=== PATIENT | male | born 1990 | race African-American/Black ===

== ENCOUNTER 2018-08-03 14:14 | Emergency (ER) | payer SELFPAY ==
--- NOTE | 2018-08-03 14:30 | PDOC ---
Rapid Medical Evaluation Chief Complaint: Chest Pain Time Seen by Provider: 08/03/18 14:28 Medical Evaluation: Allergies Allergy/AdvReac Type Severity Reaction Status Date / Time No Known Allergies Allergy Verified 08/03/18 14:28 08/03/18 14:28 c/o chest pain x ~ 1.5 months not getting better. + marijuana daily smoker. denies dizziness, fever/ chills PE: patient alert ox3. breath sounds regular rate. non reproducible chest pain A: chest pain P: chest xray, ekg patient to the ER for further management Discharge Disposition - Diagnosis Chest pain at rest - Referrals - Patient Instructions - Post Discharge Activity
[2018-08-03 14:33] VITALS: BP 108/66; PULSE 70; TEMP 97.7; BMI 22.4
[2018-08-03] MEDS ORDERED: ALBUTEROL SO4 2.5/IPRATROPIUM 0.5 INH SOL 3 ML VIAL.NEB. NEB ONE ×2 (15:17→15:38)
--- NOTE | 2018-08-03 15:20 | PDOC ---
History of Present Illness - General Chief Complaint: Chest Pain Stated Complaint: CHEST PAIN Time Seen by Provider: 08/03/18 14:28 History Source: Patient Exam Limitations: No Limitations - History of Present Illness Initial Comments: 08/03/18 15:19 27 yr male with c/o chest pain on and off for 2 weeks worse with smoking marijuana. No SOB no fever no chills. Pt admits to smoking marijuana daily . Pt has no pmhx no allergies. Pt states pain is left sided radiated to back and to the lower abdomen, worse after smoking marijuana. no recent travel or surgery. 08/03/18 15:35 Past History - Past Medical History Allergies/Adverse Reactions: Allergies Allergy/AdvReac Type Severity Reaction Status Date / Time No Known Allergies Allergy Verified 08/03/18 14:28 Home Medications: Ambulatory Orders NK [No Known Home Medication] 08/03/18 COPD: No Other medical history: DENIES. - Suicide/Smoking/Psychosocial Hx Smoking History: Never smoked Substance Use Type: Marijuana Review of Systems - Review of Systems Able to Perform ROS?: Yes Is the patient limited Citizen [place] proficient: No Constitutional: No: Symptoms Reported HEENTM: No: Symptoms Reported Respiratory: No: Symptoms reported Cardiac (ROS): Yes: Symptoms Reported *Physical Exam - Vital Signs Last Vital Signs Temp Pulse Resp BP Pulse Ox 97.7 F 70 19 108/66 100 08/03/18 14:28 08/03/18 14:28 08/03/18 14:28 08/03/18 14:28 08/03/18 14:28 - Physical Exam General Appearance: Yes: Nourished, Appropriately Dressed HEENT: positive: EOMI, SELVIN, TMs Normal, Pharynx Normal Neck: positive: Supple. negative: Tender Respiratory/Chest: positive: Lungs Clear, Normal Breath Sounds. negative: Chest Tender Cardiovascular: positive: Regular Rhythm, Regular Rate Gastrointestinal/Abdominal: positive: Normal Bowel Sounds, Soft Musculoskeletal: positive: Normal Inspection Extremity: positive: Normal Capillary Refill, Normal Inspection, Normal Range of Motion Integumentary: positive: Normal Color, Dry, Warm Neurologic: positive: acidity tester II-XII NML intact, Fully Oriented, Alert, Normal Mood/ Affect, Normal Response, Motor Strength 5/5 Heart Score/ECG Review - History History: Slightly suspicious - Electrocardiogram EKG: Non specific repolarization disturbance - Age Age: </= 45 - Risk Factors Risk Factors Heart Score: No Hx Hypercholesterolemia, No Hx Hypertension, No Hx Diabetes, Yes Smoking History, No Positive family hx of cardiac disease Based on the list above the patient has:: No risk factors known - ECG Intrepretation Rhythm: Regular Rhythm - [place]: Left [place] Deviation ED Treatment Course - LABORATORY CBC & Chemistry Diagram: 08/03/18 15:45 08/03/18 15:50 - ADDITIONAL ORDERS Additional order review: Laboratory Results 08/03/18 15:50 Sodium 138 Potassium 4.1 Chloride 104 Carbon Dioxide 28 Anion Gap 6 L BUN 14 Creatinine 1.1 Creat Clearance w eGFR > 60 Random Glucose 90 Calcium 8.9 Total Bilirubin 1.1 H AST 29 ALT 26 Alkaline Phosphatase 66 Creatine Kinase 341 H Creatine Kinase Index 0.3 CK-MB (CK-2) 1.3 Troponin I < 0.02 Total Protein 8.2 Albumin 4.0 08/03/18 15:45 RBC 5.57 MCV 84.4 MCHC 33.0 RDW 12.7 MPV 8.9 - Medications Given in the ED: ED Medications Discontinued Medications Generic Name Dose Route Start Last Admin Trade Name Freq PRN Reason Stop Dose Admin Albuterol/Ipratropium 1 amp 08/03/18 15:17 08/03/18 15:50 Duoneb - NEB 08/03/18 15:18 1 amp ONCE ONE Administration Ibuprofen 600 mg 08/03/18 15:35 08/03/18 15:51 Motrin - PO 08/03/18 15:36 600 mg ONCE ONE Administration Medical Decision Making - Medical Decision Making 08/03/18 15:38 cc: left sided chest pain constant stabbing sensation radiates to the side and mid back , lower abd pain no fever no chills, no coughing pt states pain worse with deep breathe and with smoking marijuana neg nausea or vomiting pt appears comfortable no distress vitals stable EKG with NSR left axis deviation, abnormal EKG signed by Dr. Acuna will get labs, CXR, duoneb ibuprofen 08/03/18 15:41 *DC/Admit/Observation/Transfer Diagnosis at time of Disposition: Chest pain at rest - Referrals Referrals: Barry Fraser MD [Staff Physician] - [facility] [Provider Group] José Luis Molina MD [Staff Physician] - - Patient Instructions Printed Discharge Instructions: DI for Atypical Chest Pain Additional Instructions: follow up with one of the doctors listed below . is primary care is cardiology , call Monday to make appointment for next week, tell them you were in the ER avoid smoking any type of inhalant can cause lung pain take ibuprofen as directed for pain (over the counter motrin, advil or ibuprofen ) drink at least 2 liters of water Return if any worsening symptoms - Post Discharge Activity
[2018-08-03] MEDS ORDERED: IBUPROFEN 600 MG TABLET (FP) PO ONE ×2 (15:35→15:38)
[2018-08-03 15:54] LABS: HEMOGLOBIN 15.5 GM/dL (11.7-16.9); MCH 27.9 pg (25.7-33.7); MEAN CELL VOLUME 84.4 fl (80-96); MEAN PLT VOLUME 8.9 fl (7.5-11.1); PLATELET COUNT 216 K/MM3 (134-434); RBC 5.57 M/mm3 (4.00-5.60); RDW 12.7 % (11.9-15.9); WHITE BLOOD COUNT 4.9 K/mm3 (4.0-10.0)
[2018-08-03 16:33] LABS: ALK PHOS 66 U/L (45-117); ANION GAP 6 MMOL/L (8-16); BILIRUBIN,TOTAL 1.1 mg/dL (0.2-1); BLOOD UREA NITROGEN 14 mg/dL (7-18); CALCIUM 8.9 mg/dL (8.5-10.1); CHLORIDE 104 mmol/L (98-107); CO2 28 mmol/L (21-32); CREATININE 1.1 mg/dL (0.55-1.3); GLUCOSE,RANDOM 90 mg/dL (74-106); POTASSIUM 4.1 mmol/L (3.5-5.1); SGOT/AST 29 U/L (15-37); SGPT/ALT 26 U/L (13-61); SODIUM 138 mmol/L (136-145); TOT PROT 8.2 g/dl (6.4-8.2)
--- NOTE | 2018-08-06 23:47 | EKG ---
Test Reason : Blood Pressure : / mmHG Vent. Rate : 061 BPM Atrial Rate : 061 BPM P-R Int : 150 ms QRS Dur : 078 ms QT Int : 356 ms P-R-T Axes : 071 -46 026 degrees QTc Int : 358 ms NORMAL SINUS RHYTHM LEFT AXIS DEVIATION ABNORMAL ECG NO PREVIOUS ECGS AVAILABLE Confirmed by JOSHUA HOBSON MD ([id number]) on 08/06/2018 11:46:56 PM Referred By: Confirmed By:JOSHUA HOBSON MD
== END 2018-08-03 17:34 | disposition home or self-care (01) ==
LOC: JERFT 14:14
PROC: 3E0F7GC Introduction of Other Therapeutic Substance into Respiratory Tract, Via Natural or Artificial Opening (ICD-10-PCS; principal; 2018-08-03)
DX: R07.9 Chest pain, unspecified (principal); Z87.891 Personal history of nicotine dependence
CPT/HCPCS: 36415; 71046-TC-FY; 80053; 82550; 82553; 84484; 85027; 93005; 93010; 99281-25

== ENCOUNTER 2018-11-17 19:33 | Emergency (ER) | payer SELFPAY ==
[2018-11-17 19:38] VITALS: BMI 24.1
--- NOTE | 2018-11-17 20:59 | PDOC ---
History of Present Illness - General Chief Complaint: Chest Pain Stated Complaint: CHEST PAIN Time Seen by Provider: 11/17/18 20:47 - History of Present Illness Initial Comments: 11/17/18 21:00 27 yo M with no significant pmh who p/w chest pain. Patient reports unremitting left sided chest pressure, radiating to left axilla x 24 hours. states that he has experienced 1-2 weeks of non pleuritic, non exertional chest pressure with no identifiable triggers or alleviations, resolving spontaneously. Reports h/o similar presentation in past. Denies recent chest trauma. Does not f/w cardiology. Patient denies JAVIER, vision change, palpitations, cough, wheezing, orthopena, PND , leg swelling/pain, N/V, F,C, SOB, urinary complaints, hematuria, BPR, abdominal pain, diarrhea, constipation, lightheadedness, weakness, sensory changes. PMHx: as noted above. Denies h/o ACS/WV, stent, holter monitor testing, stress testing, abnml EKG, PE/DVT. ROS: as noted SHx: Denies tobacco use, IVDA, Etoh. Reports daily recreational marijuanna use. No recent travels, or sick contacts. Allergies: NKDA Past History - Past Medical History Allergies/Adverse Reactions: Allergies Allergy/AdvReac Type Severity Reaction Status Date / Time No Known Allergies Allergy Verified 11/17/18 19:38 Home Medications: Ambulatory Orders NK [No Known Home Medication] 08/03/18 COPD: No Diabetes: No HTN: No Hypercholesterolemia: No - Immunization History Immunization Up to Date: No - Suicide/Smoking/Psychosocial Hx Smoking History: Never smoked Have you smoked in the past 12 months: No Information on smoking cessation initiated: No Hx Alcohol Use: No Drug/Substance Use Hx: No Substance Use Type: Marijuana Review of Systems - Review of Systems Comments:: 11/17/18 21:05 GENERAL/CONSTITUTIONAL: No fever or chills. No weakness. HEAD, EYES, EARS, NOSE AND THROAT: No change in vision. No ear pain or discharge. No sore throat. CARDIOVASCULAR:+ chest pain. No shortness of breath RESPIRATORY: No cough, wheezing, or hemoptysis. GASTROINTESTINAL: No nausea, vomiting, diarrhea or constipation. GENITOURINARY: No dysuria, frequency, or change in urination. MUSCULOSKELETAL: No joint or muscle swelling or pain. No neck or back pain. SKIN: No rash NEUROLOGIC: No headache, vertigo, loss of consciousness, or change in strength/ sensation. ENDOCRINE: No increased thirst. No abnormal weight change HEMATOLOGIC/LYMPHATIC: No anemia, easy bleeding, or history of blood clots. ALLERGIC/IMMUNOLOGIC: No hives or skin allergy. *Physical Exam - Vital Signs Last Vital Signs Temp Pulse Resp BP Pulse Ox 98.0 F 64 16 138/69 100 11/17/18 19:36 11/17/18 19:36 11/17/18 19:36 11/17/18 19:36 11/17/18 19:36 - Physical Exam Comments: 11/17/18 21:05 GENERAL: Awake, alert, and fully oriented, in no acute distress HEAD: No signs of trauma, normocephalic, atraumatic EYES: PERRLA, EOMI, sclera anicteric, conjunctiva clear ENT: Auricles normal inspection, hearing grossly normal, nares patent, oropharynx clear without exudates. Moist mucosa NECK: Normal ROM, supple, no lymphadenopathy, JVD, or masses LUNGS: No distress, speaks full sentences, clear to auscultation bilaterally HEART: Regular rate and rhythm, normal S1 and S2, no murmurs, rubs or gallops, peripheral pulses normal and equal bilaterally. ABDOMEN: Soft, nontender, normoactive bowel sounds. No guarding, no rebound. No masses EXTREMITIES : Normal inspection, Normal range of motion, no edema. No clubbing or cyanosis. NEUROLOGICAL: Cranial nerves II through XII grossly intact. Normal speech, normal gait, no focal sensorimotor deficits SKIN: Warm, Dry, normal turgor, no rashes or lesions noted Moderate Sedation - Procedure Monitoring Vital Signs: Procedure Monitoring Vital Signs Temperature 98.0 F 11/17/18 19:36 Pulse Rate 64 11/17/18 19:36 Respiratory Rate 16 11/17/18 19:36 Blood Pressure 138/69 11/17/18 19:36 O2 Sat by Pulse Oximetry (%) 100 11/17/18 19:36 ED Treatment Course - LABORATORY CBC & Chemistry Diagram: 11/17/18 21:35 11/17/18 21:35 Medical Decision Making - Medical Decision Making 11/17/18 21:04 27 yo M with no significant pmh who p/w unremitting left sided chest pressure, radiating to left axilla x 24 hours. Vitals wnl, AF, A&Ox3. Physical exam unremarkable. ACS/WV r/o. R/o PNA. PERC NEG PE. Will consider costochondritis, gastritis. No evdiece of pleural or pericardial effusion, asthma, CHF. ED Course: ASA 162 11/17/18 21:34 EKG: Sinus bradycardia HR 59, with LAD, absent ADDISON, STD. Absent pathologic Q waves, nml R wave progression. CXR: Unremarkable 11/17/18 22:30 CBC,CMP: Unremarkable Trop: Neg Patient stable for d/c with return precautions Advised to f/u with cardiology *DC/Admit/Observation/Transfer Diagnosis at time of Disposition: Chest pain at rest - Discharge Dispostion Disposition: HOME Condition at time of disposition: Stable Decision to Admit order: No - Referrals Referrals: Bry Mack MD [Staff Physician] - Silvio Salas MD [Staff Physician] - - Patient Instructions Printed Discharge Instructions: DI for Atypical Chest Pain Additional Instructions: Please return to the emergency department with any new or worsening symptoms or concerns. Please follow up with your lapper within 72 hours. - Post Discharge Activity - Attestations Physician Attestion: 11/17/18 21:06 I attest to the information provided in this note.
--- NOTE | 2018-11-17 21:31 | PDOC ---
Attending Attestation - HPI HPI: 11/17/18 22:42 The patient is a 27 year old male with no reported past medical history presents to the emergency department with chest pain. The patient presents with L. sided chest pain, thats pressure in quality, radiates to the l. Axillary region. The patient reports the pain been ongoing for the past 1-2 weeks, that would self resolve, however, in the last 24 hours the pains been constant. No known cardiac follow up or cardiac test. Denies SOB, lightheadedness, nausea or vomiting. Allergies: NKDA. - Physicial Exam PE: 11/17/18 22:42 GENERAL: Awake, alert, and fully oriented, in no acute distress HEAD: No signs of trauma EYES: PERRLA, EOMI, sclera anicteric, conjunctiva clear ENT: Auricles normal inspection, hearing grossly normal, nares patent, oropharynx clear without exudates. Moist mucosa NECK: Normal ROM, supple, no lymphadenopathy, JVD, or masses LUNGS: Breath sounds equal, clear to auscultation bilaterally. No wheezes, and no crackles HEART: Regular rate and rhythm, normal S1 and S2, no murmurs, rubs or gallops ABDOMEN: Soft, nontender. No guarding, no rebound. No masses EXTREMITIES: Moving all extremities. Normal range of motion, no edema. No clubbing or cyanosis. No cords, erythema, or tenderness NEUROLOGICAL: Cranial nerves II through XII grossly intact. Normal speech, normal gait SKIN: Warm, Dry, normal turgor, no rashes or lesions noted. - Medical Decision Making 11/17/18 22:44 Documentation prepared by Gaye Brar, acting as medical technologist blood bank for Madison Kaufman MD. <Gaye Brar - Last Filed: 11/17/18 22:44> - Resident Resident Name: Tonio Sen - ED Attending Attestation I have performed the following: I have examined & evaluated the patient, The case was reviewed & discussed with the resident, I agree w/resident's findings & plan - Medical Decision Making 11/17/18 22:31 Pt comes with atypical CP; all labs are normal; EKG NSR (rate 59) CXR normal. 11/18/18 20:58 Exam normal. pt will be discharged home. <Madison Kaufman - Last Filed: 11/18/18 20:58>
[2018-11-17] MEDS ORDERED: ASPIRIN 81 MG CHEWABLE TABLETS ONE (21:38)
[2018-11-17] MEDS ORDERED: ASPIRIN COATED 81 MG TABLET.EC PO ONE (21:45)
[2018-11-17 21:50] LABS: BASO % 0.8 % (0-2.0); EOS % 2.7 % (0-4.5); HEMATOCRIT 45.6 % (35.4-49); HEMOGLOBIN 15.6 GM/dL (11.7-16.9); LYMPH % 24.7 % (8-40); MCH 29.1 pg (25.7-33.7); MCHC 34.2 g/dl (32.0-35.9); MEAN CELL VOLUME 85.1 fl (80-96); MEAN PLT VOLUME 8.2 fl (7.5-11.1); MONO % 7.9 % (3.8-10.2); NEUT % 63.9 % (42.8-82.8); PLATELET COUNT 241 K/MM3 (134-434); RBC 5.36 M/mm3 (4.00-5.60); RDW 12.5 % (11.9-15.9); WHITE BLOOD COUNT 5.4 K/mm3 (4.0-10.0)
[2018-11-17 22:19] LABS: ALBUMIN 4.2 g/dl (3.4-5.0); ALK PHOS 65 U/L (45-117); ANION GAP 8 MMOL/L (8-16); BILIRUBIN,TOTAL 0.8 mg/dL (0.2-1); BLOOD UREA NITROGEN 12 mg/dL (7-18); CHLORIDE 103 mmol/L (98-107); CO2 28 mmol/L (21-32); CREATININE 1.2 mg/dL (0.55-1.3); GLUCOSE,RANDOM 90 mg/dL (74-106); POTASSIUM 4.1 mmol/L (3.5-5.1); SGOT/AST 19 U/L (15-37); SGPT/ALT 22 U/L (13-61); SODIUM 139 mmol/L (136-145); TOT PROT 8.6 g/dl (6.4-8.2)
[2018-11-17 23:36] VITALS: BP 124/66; PULSE 72; TEMP 98.3
--- NOTE | 2018-11-20 13:52 | EKG ---
Test Reason : Blood Pressure : / mmHG Vent. Rate : 059 BPM Atrial Rate : 059 BPM P-R Int : 152 ms QRS Dur : 076 ms QT Int : 392 ms P-R-T Axes : 069 -43 028 degrees QTc Int : 388 ms SINUS BRADYCARDIA POSSIBLE LEFT ATRIAL ENLARGEMENT LEFT AXIS DEVIATION ABNORMAL ECG WHEN COMPARED WITH ECG OF 03-AUG-2018 14:46, NO SIGNIFICANT CHANGE WAS FOUND Confirmed by MD Dimitri, James ([id number]) on 11/20/2018 1:52:13 PM Referred By: Confirmed By:James Mosley MD
== END 2018-11-17 23:15 | disposition home or self-care (01) ==
LOC: JER 19:33
DX: R07.9 Chest pain, unspecified (principal)
CPT/HCPCS: 36415; 71045-TC-FY; 80053; 82550; 82553; 84484; 85025; 93005; 93010; 99282-25

== ENCOUNTER 2019-10-30 10:03 | Emergency (ER) | payer OTHER ==
[2019-10-30 10:17] VITALS: BP 117/72; PULSE 74; TEMP 97.5; BMI 24.9
[2019-10-30] MEDS ORDERED: IBUPROFEN 600 MG TABLET (FP) PO ONE ×2 (11:38→11:46)
--- NOTE | 2019-10-30 11:50 | PDOC ---
Documentation entered by Adriana Wooten SCRIBE, acting as scribe for Israel Hanson MD. Israel Hanson MD: This documentation has been prepared by the Je hartley Nirvannie, SCRIBE, under my direction and personally reviewed by me in its entirety. I confirm that the documentation accurately reflects all work, treatment, procedures, and medical decision making performed by me. History of Present Illness - General Chief Complaint: Pain Stated Complaint: MY LEFT TESTICLE PAIN Time Seen by Provider: 10/30/19 11:06 History Source: Patient Exam Limitations: No Limitations - History of Present Illness Initial Comments: 10/30/19 11:47 28-year-old male presents to the ER complaining of atraumatic left testicular pain for the past 6 weeks. Pain is mild to moderate, intermittent, waxing waning in severity, without associated dysuria/ Frequency/ urgency/ discharge.Patient endorses that he was evaluated at [facility] for the same condition 3 weeks prior, treated with IM ceftriaxone and p.o. doxycycline after scrotal ultrasound revealed questionable epididymitis. Patient denies sexual activity within the last 6 months. REVIEW OF SYSTEMS CONSTITUTIONAL: No fever, no chills, no fatigue EYES: No visual changes ENT: No ear pain, no sore throat CARDIOVASCULAR: No chest pain, no palpitations RESPIRATORY: No cough, no SOB GI: No abdominal pain, no nausea, no vomiting, no constipation, no diarrhea GENITOURINARY: No dysuria, no frequency, no hematuria; + left scrotal pain MUSKULOSKELETAL: No backpain, no joint pain, no myalgias SKIN: No rash NEURO: No headache EXAMINATION CONSTITUTIONAL: Well-appearing; well-nourished; in no apparent distress HEAD: Normocephalic; atraumatic EYES: PERRL; EOM intact ENMT: External appears normal; normal oropharynx NECK: Supple; non-tender; no cervical lymphadenopathy CARD: Normal S1, S2; no murmurs, rubs, or gallops RESP: Normal chest excursion with respiration; breath sounds clear and equal bilaterally; no wheezes, rhonchi, or rales ABD: Soft, non-distended; non-tender; no palpable organomegaly, no palpable hernias : no penile lessions, both testicles are in nl lie. no masses palpable. EXT: Normal ROM in all four extremities; non-tender to palpation; distal pulses intact SKIN: Warm, dry, no rash NEURO: No focal neurological deficiencies. Past History - Past Medical History Allergies/Adverse Reactions: Allergies Allergy/AdvReac Type Severity Reaction Status Date / Time No Known Allergies Allergy Verified 10/30/19 10:17 Home Medications: Ambulatory Orders NK [No Known Home Medication] 08/03/18 COPD: No Diabetes: No HTN: No Hypercholesterolemia: No - Immunization History Immunization Up to Date: No - Psycho Social/Smoking Cessation Hx Smoking History: Current some day smoker Have you smoked in the past 12 months: No Information on smoking cessation initiated: No Hx Alcohol Use: No Drug/Substance Use Hx: Yes Substance Use Type: Marijuana *Physical Exam - Vital Signs Last Vital Signs Temp Pulse Resp BP Pulse Ox 97.5 F L 74 16 117/72 99 10/30/19 10:14 10/30/19 10:14 10/30/19 10:14 10/30/19 10:14 10/30/19 10:14 ED Treatment Course - RADIOLOGY Radiology Studies Ordered: Category Date Time Status SCROTUM AND CONTENTS US [US] Stat Ultrasound 10/30/19 11:17 Ordered Medical Decision Making - Medical Decision Making 10/30/19 13:41 Patient is well-appearing 28-year-old male who presents with Left testicular pain 6 weeks . In the ER, patient is awake and alert, well-appearing, afebrile , no distress. Scrotal evaluation reveals no evidence of testicular or penile pathology. There are no palpable hernias. Urinalysis and scrotal ultrasound revealed no evidence of varicocele/hydrocele/epididymitis. Will discharge with urology follow-up. Discharge - Discharge Information Problems reviewed: Yes Clinical Impression/Diagnosis: Testicular pain, left Condition: Stable Disposition: HOME - Follow up/Referral Referrals: [facility] [place] [Provider Group] Lebron Hernández MD [Staff Physician] - - Patient Discharge Instructions Patient Printed Discharge Instructions: DI for Testicular Pain - Post Discharge Activity
[2019-10-30 11:51] LABS: PH,URINE 5.5 (5.0-8.0); URINE APPEARANCE CLEAR; URINE BILIRUBIN NEGATIVE (NEGATIVE); URINE COLOR YELLOW; URINE GLUCOSE (UA) NEGATIVE (NEGATIVE); URINE KETONE NEGATIVE (NEGATIVE); URINE LEUK ESTERASE NEGATIVE (NEGATIVE); URINE NITRITE NEGATIVE (NEGATIVE); URINE PROTEIN NEGATIVE (NEGATIVE); URINE UROBILINOGEN 0.2 mg/dL (0.2-1.0)
== END 2019-10-30 14:21 | disposition home or self-care (01) ==
LOC: JER 10:03
DX: N50.812 Left testicular pain (principal); F17.210 Nicotine dependence, cigarettes, uncomplicated
CPT/HCPCS: 36415; 76870-TC; 81003; 87086; 87491; 87591; 99284-25